=== PATIENT | female | born 1995 | race Hispanic/Latino ===

== ENCOUNTER 2017-12-02 14:28 | Emergency (ER) | payer SELFPAY ==
[2017-12-02] MEDS ORDERED: ONDANSETRON ODT 4 MG TAB ONE (15:21)
[2017-12-02] MEDS ORDERED: FAMOTIDINE/PF 20 MG/2 ML VIAL IV ONE (15:22)
[2017-12-02 15:26] LABS: APPEARANCE,URINE Clear (CLEAR); BILIRUBIN,URINE Negative (NEGATIVE); COLOR,URINE Yellow (YELLOW); GLUCOSE, URINE (UA) Negative (NEGATIVE); HCG,QUAL RESULT NEGATIVE (NEGATIVE); KETONES,URINE Negative (NEGATIVE); LEUKOCYTE ESTERASE ,URINE Negative (NEGATIVE); NITRATE,URINE Negative (NEGATIVE); OCCULT BLOOD,URINE Negative (NEGATIVE); PROTEIN,URINE Negative (NEGATIVE); UROBILINOGEN,URINE 0.2 mg/dL (0.2-1.0)
[2017-12-02 15:27] LABS: BASOPHILS % (AUTO) 0.9 % (0.0-5.0); EOSINOPHILS % (AUTO) 1.7 % (0.0-8.0); HEMATOCRIT 37.9 % (36-48); LYMPHOCYTES % (AUTO) 24.7 % (21.0-51.0); MEAN CORPUSCULAR HEMOGLOBIN 29.8 pg (27.0-33.0); MEAN CORPUSCULAR VOLUME 87.6 fL (79-99); MONOCYTES % (AUTO) 6.5 % (3.0-13.0); NEUTROPHILS % (AUTO) 66.2 % (40.0-77.0); PLATELET COUNT (AUTO) 198 K/uL (130-400); RED BLOOD CELL COUNT(AUTO) 4.33 MIL/uL (4.00-5.50); RED CELL DISTRIBUTION WIDTH 14.4 % (11.0-15.5); WHITE BLOOD COUNT (AUTO) 7.2 K/uL (4.8-10.8)
[2017-12-02 15:34] LABS: AMPHET/METH SCREEN,URINE NEGATIVE (NEGATIVE); BARBITURATE SCREEN, URINE NEGATIVE (NEGATIVE); BENZODIAZEPINES SCREEN,URINE NEGATIVE (NEGATIVE); CANNABINOID SCREEN,URINE POSITIVE (NEGATIVE); COCAINE SCREEN,URINE NEGATIVE (NEGATIVE); OPIATE SCREEN,URINE NEGATIVE (NEGATIVE); PHENCYCLIDINE SCREEN,URINE NEGATIVE (NEGATIVE)
[2017-12-02 15:38] LABS: CREATININE 0.7 mg/dL (0.5-1.5); POTASSIUM 3.9 mmol/L (3.5-5.1)
[2017-12-02 15:42] LABS: ALBUMIN 4.1 g/dL (3.5-5.0); BILIRUBIN,DIRECT 0.1 mg/dL (0.0-0.3); BILIRUBIN,TOTAL 0.4 mg/dL (0.2-1.0)
[2017-12-02] MEDS ORDERED: SODIUM CHLORIDE 0.9% 1000ML 1,000 ML IV ONE (15:58)
== END 2017-12-02 18:51 | disposition home or self-care (01) ==
LOC: EDH 14:28
DX: R10.10 Upper abdominal pain, unspecified (principal); R74.8 Abnormal levels of other serum enzymes; R11.0 Nausea; Z98.890 Other specified postprocedural states
CPT/HCPCS: 36415; 76705; 80048; 80076; 80305; 81003; 81025; 83690; 85025; 86677; 96361; 96365; 99285; J3490; J7030

== ENCOUNTER 2018-02-04 23:19 | Emergency (ER) | payer OTHER ==
[2018-02-04 23:58] LABS: APPEARANCE,URINE Clear (CLEAR); BILIRUBIN,URINE Negative (NEGATIVE); COLOR,URINE Yellow (YELLOW); GLUCOSE, URINE (UA) Negative (NEGATIVE); KETONES,URINE Negative (NEGATIVE); LEUKOCYTE ESTERASE ,URINE Negative (NEGATIVE); NITRATE,URINE Negative (NEGATIVE); OCCULT BLOOD,URINE Negative (NEGATIVE); PROTEIN,URINE Negative (NEGATIVE)
[2018-02-05 00:01] LABS: HCG,QUAL RESULT NEGATIVE (NEGATIVE)
[2018-02-05 00:11] LABS: RAPID GROUP A STREP NEGATIVE (NEGATIVE)
== END 2018-02-05 01:18 | disposition home or self-care (01) ==
LOC: EDH 23:19
DX: J02.9 Acute pharyngitis, unspecified (principal); R50.81 Fever presenting with conditions classified elsewhere; J45.909 Unspecified asthma, uncomplicated
CPT/HCPCS: 71045; 81003; 81025; 87804; 87880

== ENCOUNTER 2018-09-25 21:44 | Emergency (ER) | payer OTHER | END 2018-09-26 00:16 | disposition home or self-care (01) | LOC: EDH 21:44 | DX: J06.9 Acute upper respiratory infection, unspecified (principal); F41.9 Anxiety disorder, unspecified; J45.909 Unspecified asthma, uncomplicated | CPT/HCPCS: 87804 ==

== ENCOUNTER 2019-06-26 19:58 | Emergency (ER) | payer OTHER ==
[2019-06-26 20:19] LABS: APPEARANCE,URINE Clear (CLEAR); BILIRUBIN,URINE Negative (NEGATIVE); COLOR,URINE Yellow (YELLOW); GLUCOSE, URINE (UA) Negative (NEGATIVE); KETONES,URINE Negative (NEGATIVE); LEUKOCYTE ESTERASE ,URINE Small (NEGATIVE); NITRATE,URINE Negative (NEGATIVE); OCCULT BLOOD,URINE Negative (NEGATIVE); PH,URINE 6.5 (5.0-8.0); PROTEIN,URINE Negative (NEGATIVE)
[2019-06-26 20:32] LABS: BACTERIA,URINE Few /HPF (None Seen); MUCUS,URINE Few LPF (None Seen)
== END 2019-06-26 20:45 | disposition home or self-care (01) ==
LOC: EDH 19:58
DX: S30.1XXA Contusion of abdominal wall, initial encounter (principal); J45.909 Unspecified asthma, uncomplicated; F41.9 Anxiety disorder, unspecified; F32.9 Major depressive disorder, single episode, unspecified; X58.XXXA Exposure to other specified factors, initial encounter; Y93.89 Activity, other specified; Y92.89 Other specified places as the place of occurrence of the external cause; Y99.8 Other external cause status
CPT/HCPCS: 81001

== ENCOUNTER 2024-01-29 20:22 | Emergency (ER) | payer OTHER ==
[~2024-01-29] VITALS: Ht 152.4 cm; Wt 59.0 kg
[2024-01-29 20:27] VITALS: BP 124/62; PULSE 92; RESP 18
[2024-01-29 20:57] LABS: RAPID GROUP A STREP negative (NEGATIVE)
[2024-01-29 21:01] LABS: SARS-CoV-2, RNA, NAAT NEGATIVE SARS CoV-2 (NEGATIVE)
[2024-01-29 21:04] LABS: INFLUENZA TYPE A NEGATIVE FOR TYPE A (NEG)
[2024-01-29 21:05] LABS: INFLUENZA TYPE B NEGATIVE FOR TYPE B (NEG)
[2024-01-29 21:11] LABS: BASOPHILS # (AUTO) 0.05 K/uL (0.00-0.20); BASOPHILS % (AUTO) 0.5 % (0.0-5.0); EOSINOPHILS # (AUTO) 0.31 K/uL (0.00-0.70); EOSINOPHILS % (AUTO) 3.1 % (0.0-8.0); HEMATOCRIT 38.3 % (36-48); IMMATURE GRANULOCYTE ABSOLUTE 0.09 K/uL (0-1); MEAN CORPUSCULAR HEMOGLOBIN 30.1 pg (27.0-33.0); MEAN CORPUSCULAR HGB CONC 33.7 g/dL (32.0-36.0); MEAN CORPUSCULAR VOLUME 89.5 fL (79-99); MONOCYTES # (AUTO) 0.6 K/uL (0.1-1.0); NEUTROPHILS % (AUTO) 59.5 % (40.0-77.0); PLATELET COUNT (AUTO) 278 K/uL (130-400); RED BLOOD CELL COUNT(AUTO) 4.28 MIL/uL (4.00-5.50); RED CELL DISTRIBUTION WIDTH 13.2 % (11.0-15.5); WHITE BLOOD COUNT (AUTO) 10.1 K/uL (4.8-10.8)
[2024-01-29 21:21] LABS: CREATININE 0.8 mg/dL (0.5-1.0); POTASSIUM 3.5 mmol/L (3.5-5.1)
[2024-01-29] MEDS ORDERED: AMOX1TAB16 PO (22:57)
[2024-01-29] MEDS ORDERED: FLUT16H NASAL (22:57)
[2024-01-29] MEDS: GUAIFENESIN/DEXTROMETHORPHAN 1 EACH TAB.SR.12H PO ONE (23:33)
== END 2024-01-29 23:44 | disposition home or self-care (01) ==
LOC: EDH 20:22
DX: J32.9 Chronic sinusitis, unspecified (principal); J45.909 Unspecified asthma, uncomplicated; K21.9 Gastro-esophageal reflux disease without esophagitis
CPT/HCPCS: 36415; 71045; 80048; 85025; 87635; 87804; 87880

== ENCOUNTER 2024-03-01 20:07 | Emergency (ER) | payer OTHER ==
[~2024-03-01] VITALS: Ht 144.8 cm; Wt 58.5 kg
[~2024-03-01 20:07] MED LIST: AMOX1TAB16 PO; FLUT16H NASAL
[2024-03-01] MEDS ORDERED: KETO10TA2 PO (22:10)
[2024-03-01] MEDS: KETOROLAC 30MG VIAL (30MG/ML) IM ONE (22:15)
[2024-03-01 22:24] VITALS: BP 111/75; PULSE 80; RESP 18; O2SAT 98
== END 2024-03-01 22:25 | disposition home or self-care (01) ==
LOC: EDH 20:07
DX: S16.1XXA Strain of muscle, fascia and tendon at neck level, initial encounter (principal); S06.0X0A Concussion without loss of consciousness, initial encounter; J45.909 Unspecified asthma, uncomplicated; Z79.2 Long term (current) use of antibiotics; Z79.899 Other long term (current) drug therapy; V49.49XA Driver injured in collision with other motor vehicles in traffic accident, initial encounter; Y93.I9 Activity, other involving external motion; Y92.488 Other paved roadways as the place of occurrence of the external cause; Y99.8 Other external cause status
CPT/HCPCS: 99285; 70450; 84703; 36415; 72125; 96372; J1885

== ENCOUNTER 2024-11-01 11:54 | Emergency (ER) | payer SELFPAY ==
[~2024-11-01] VITALS: Ht 144.8 cm; Wt 58.1 kg
[~2024-11-01 11:54] MED LIST changes: +KETO10TA2 PO
--- NOTE | 2024-11-01 13:05 | ERN ---
ED Note History of Present Illness Stated Complaint: FEL, RIGHT WRIST PAIN, SWOLLEN Chief Complaint: Hand Problem/Injury Time Seen by MD: 11:55 Time Seen by Midlevel: 11:55 Dictation: 29-year-old female presents to the ED for evaluation of right wrist and arm pain since yesterday. Patient reports she was playing with the kids when she tripped and fell and landed on her right arm. Patient reports she has had pains and swelling since. Reports full range motion of fingers and sensation. Denies hitting her head or loss of consciousness. No blood thinners. Allergies: Coded Allergies: No Known Drug Allergies (Unverified Allergy, Unknown, 03/01/24) Home Meds Active Scripts Ketorolac Tromethamine (Ketorolac Tromethamine) 10 Mg Tablet, 10 MG PO BID for 5 Days, #10 TAB Prov:JULIO MCLAUGHLIN 03/01/24 Amoxicillin/Potassium Clav (Amox Tr-K Clv 875-125 mg Tab) 875 Mg-125 Mg Tablet, 1 EACH PO BID for 7 Days, #14 TAB Prov:RYLIE STINSON MD 01/29/24 Fluticasone Propionate (Flonase Nasal [place]) 50 Mcg/Actuation [place], 50 MCG NASAL BID for 7 Days, #60 SPRAY Prov:RYLIE STINSON MD 01/29/24 Past Medical History Past Medical History: Asthma Surgical History: None RN Note Reviewed/Agreed w/PFSH: Yes Review of System Dictation CONSTITUTIONAL: Negative except for HPI HEAD/FACE: Negative except for HPI EENT: Negative except for HPI RESPIRATORY: Negative except for HPI GASTROINTESTINAL/ABDOMINAL: Negative except for HPI GENITOURINARY: Negative except for HPI MUSCULOSKELETAL: Negative except for HPI INTEGUMENTARY: Negative except for HPI NEUROLOGICAL/PSYCH: Negative except for HPI HEMATOLOGIC/LYMPHATIC: Negative except for HPI All Systems Negative, Except as noted above. 13 point review of systems assessed and all negative except for above. Review of Systems: was completed Initial Vital Sign VS Vital Signs Date Time Temp Pulse Resp B/P (MAP) Pulse Ox O2 Delivery O2 Flow Rate FiO2 11/01/24 12:13 97.9 76 16 114/84 96 Room Air Physical Exam Dictation Vital Signs reviewed General Appearance: Alert, oriented x 3, no acute distress, well developed, nourished. Head and Face: non-traumatic. Eyes: PERRL, pink conjunctivas, eyelid no trauma, anterior chamber with arcus senilis. Ears: Pinnas intact and no signs of trauma or erythema ear canals clear and no discharge TM no erythema Nose: No discharge, no bleeding. Oropharynx: Mouth normal, tongue pink, pharynx clear,no erythema, tonsils no exudates, no abscesses noted, mucous membrane moist Neck: Supple, non-tender, no thyromegaly, no masses, no JVD, no bruits Breast:Deferred Chest:No tenderness, no crepitus, no paradoxical movement, no retractions Lungs:Clear, well-ventilated, symmetric, no rales, no wheezing, no rhonchi, no stridor, good breath sounds bilaterally Heart: Regular rate, regular rhythm, no murmur, no gallops Vascular: no peripheral edema, Abdomen: Soft, positive bowel sounds, nondistended, no guarding, nontender, no rebound, no masses no hepatomegaly, no splenomegaly, no Muniz's sign, no hernias. Rectal: Deferred Genital: Deferred Neurological: Normal speech, motor function intact, sensory function intact Musculoskeletal: Tenderness to palpation right wrist and forearm. Full range motion of all digits. Normal capillary refill less than 2 seconds. Radial pulse intact. Extremities: nontender, full range of motion Skin: Color pink, dry, no turgor, no rash, no lacerations, no abrasions, no contusions. Lymphatic: Deferred Results (Laboratory/Radiology) Labs Reviewed?: Yes X-RAY Comment: REASON: fall ORDERING PHYSICIAN: MICHEL ORTIZ PROCEDURE: WRST 3V RT - WRIST COMP 3+VWS RT Exam Type: WRIST COMP 3+VWS RT Clinical Information: fall Comparison: None Findings: The bone examination is unremarkable. No fractures or dislocations are seen. No radiopaque foreign bodies are noted. Soft tissues are preserved. IMPRESSION: Normal examination. REASON: fall ORDERING PHYSICIAN: MICHEL ORTIZ PROCEDURE: HAND 3V RT - HAND 3+VWS RT Exam Type: HAND 3+VWS RT Clinical Information: fall Comparison: None Findings: The bone examination is unremarkable. No fractures or dislocations are seen. No radiopaque foreign bodies are noted. Soft tissues are preserved. IMPRESSION: Normal examination. REASON: fall ORDERING PHYSICIAN: MICHEL ORTIZ PROCEDURE: [id number] - ELBOW 2VWS RT Exam Type: ELBOW 2VWS RT Clinical Information: fall Comparison: None Findings: The bone examination is unremarkable. No fractures or dislocations are seen. No radiopaque foreign bodies are noted. Soft tissues are preserved. IMPRESSION: Normal examination. ED Course ED Course Orders Procedure Category Date Status Time Wrist Comp 3+Vws Rt RAD 11/01/24 Resulted 12:16 Hand 3+Vws Rt RAD 11/01/24 Resulted 12:16 Elbow 2vws Rt RAD 11/01/24 Resulted 12:16 Ketorolac PHA 11/01/24 Complete Tromethamine 15mg/Ml 12:30 Current Medications Medications (Trade) Dose Ordered Sig/Nicolasa Route PRN Reason Start Time Stop Time Status Last Admin Dose Admin Ketorolac Tromethamine (toRADol) 15 mg ONCE ONCE IM 11/01/24 12:30 11/01/24 12:31 DC Vital Signs Date Time Temp Pulse Resp B/P (MAP) Pulse Ox O2 Delivery O2 Flow Rate FiO2 11/01/24 12:13 97.9 76 16 114/84 96 Room Air Medical Decision Making MDM MDM: Differential diagnosis: Radial fracture, elbow fracture, dislocation, sprain, f ollow up, contusion There are no social concerns with this patient. Prescription drug management Prescriptions will include: Medical management and examination interpretation discussions were had by me with other qualified healthcare professionals as indicated for the patient's care. Patient came in after a fall that occurred yesterday. Has full range of motion elbow and shoulder and fingers Radial pulses intact. Normal capillary refill less than 2 seconds. No obvious deformities. Patient was have some mild tenderness to the radial aspect of right wrist. X-rays were unremarkable with no acute findings of fracture dislocation. Patient will be placed in a premade volar splint by R and recommended follow up with PCP and orthopedic. DX & DISP Disposition: Discharge Departure Impression: Primary Impression: Fall Additional Impression: Right wrist pain Condition: Stable Scripts Ibuprofen (Ibuprofen) 600 Mg Tablet 1 TAB PO TID for pain for 10 Days, #30 TAB 0 Refills with food Prov: MICHEL ORTIZ 11/01/24 Referrals: SELF,REFERRAL (PCP) ALEX CORONEL MD I have reviewed the case, and I agree with, Diagnosis and Plan MICHEL ORTIZ Nov 01, 2024 13:05
--- NOTE | 2024-11-01 13:20 | HMCIMG ---
Exam Type: WRIST COMP 3+VWS RT Clinical Information: fall Comparison: None Findings: The bone examination is unremarkable. No fractures or dislocations are seen. No radiopaque foreign bodies are noted. Soft tissues are preserved. IMPRESSION: Normal examination.
--- NOTE | 2024-11-01 13:22 | HMCIMG ---
Exam Type: ELBOW 2VWS RT Clinical Information: fall Comparison: None Findings: The bone examination is unremarkable. No fractures or dislocations are seen. No radiopaque foreign bodies are noted. Soft tissues are preserved. IMPRESSION: Normal examination.
--- NOTE | 2024-11-01 13:22 | HMCIMG ---
Exam Type: HAND 3+VWS RT Clinical Information: fall Comparison: None Findings: The bone examination is unremarkable. No fractures or dislocations are seen. No radiopaque foreign bodies are noted. Soft tissues are preserved. IMPRESSION: Normal examination.
[2024-11-01] MEDS ORDERED: IBUP-2070 PO (13:33)
[2024-11-01] MEDS: ketOROlac 15MG/ML VIAL (15MG/ML) IM ONE (13:43)
[2024-11-01 13:47] VITALS: BP 115/80; PULSE 75; RESP 16; TEMP 98.1; O2SAT 98
== END 2024-11-01 13:54 | disposition home or self-care (01) ==
LOC: EDH 11:54
DX: M25.531 Pain in right wrist (principal); J45.909 Unspecified asthma, uncomplicated; Z79.899 Other long term (current) drug therapy; W01.0XXA Fall on same level from slipping, tripping and stumbling without subsequent striking against object, initial encounter; Y93.89 Activity, other specified; Y92.89 Other specified places as the place of occurrence of the external cause; Y99.8 Other external cause status
CPT/HCPCS: 99284; 73070; 73130; 73110; 96372; J1885

== ENCOUNTER 2025-02-20 13:26 | Emergency (ER) | payer SELFPAY ==
[~2025-02-20] VITALS: Ht 149.9 cm; Wt 57.2 kg
[~2025-02-20 13:26] MED LIST changes: +IBUP-2070 PO
[2025-02-20 14:13] LABS: BASOPHILS # (AUTO) 0.08 K/uL (0.00-0.20); EOSINOPHILS # (AUTO) 0.29 K/uL (0.00-0.70); EOSINOPHILS % (AUTO) 3.5 % (0.0-8.0); HEMATOCRIT 43.8 % (36-48); IMMATURE GRANULOCYTE ABSOLUTE 0.05 K/uL (0-1); LYMPHOCYTES # (AUTO) 2.2 K/uL (1.0-4.8); LYMPHOCYTES % (AUTO) 26.5 % (21.0-51.0); MEAN CORPUSCULAR HEMOGLOBIN 30.2 pg (27.0-33.0); MEAN CORPUSCULAR HGB CONC 33.6 g/dL (32.0-36.0); MEAN CORPUSCULAR VOLUME 90.1 fL (79-99); MONOCYTES # (AUTO) 0.5 K/uL (0.1-1.0); MONOCYTES % (AUTO) 5.9 % (3.0-13.0); NEUTROPHILS # (AUTO) 5.1 K/uL (1.8-7.7); NEUTROPHILS % (AUTO) 62.5 % (40.0-77.0); PLATELET COUNT (AUTO) 325 K/uL (130-400); RED BLOOD CELL COUNT(AUTO) 4.86 MIL/uL (4.00-5.50); RED CELL DISTRIBUTION WIDTH 12.7 % (11.0-15.5); WHITE BLOOD COUNT (AUTO) 8.2 K/uL (4.8-10.8)
[2025-02-20 14:28] LABS: CREATININE 0.8 mg/dL (0.5-1.0)
--- NOTE | 2025-02-20 15:35 | HMCIMG ---
CT HEAD/BRAIN W/O CONTRAST HISTORY: No additional history given. COMPARISON: None TECHNIQUE: Multiple sequential axial images of the head were obtained from the base of the skull through vertex. Patient was not given contrast through intravenous route. FINDINGS: The ventricles and extraventricular CSF spaces are nondilated for patient's age. There is no midline shift, mass effect or herniation. No acute intracranial bleed is seen. Visualized portion of the paranasal sinuses are grossly within normal limits. IMPRESSION: 1. No acute intracranial bleed is seen. CT was performed with one or more following dose reduction techniques: automated exposure control, adjustment of the mA and kv according to patient's size, or use of a iterative reconstruction technique.
[2025-02-20] MEDS ORDERED: KETO10TA2 PO (16:43)
--- NOTE | 2025-02-20 16:44 | ERN ---
General Chief Complaint: Headache Stated Complaint: HEADACHE Time Seen by MD: 13:49 Time Seen by Midlevel: 13:49 Source: patient History of Present Illness Initial Comments Patient is a 29-year-old female with no significant past medical history presenting to the emergency department for evaluation of a persistent headache that has been ongoing for one month. The patient has not seen a primary care doctor for this issue over the last month. She has been taking Tylenol and Motrin as needed for her headache with little to no relief. Yesterday her symptoms were the worst. No other symptoms reported at this time. Allergies: Coded Allergies: No Known Drug Allergies (Unverified Allergy, Unknown, 03/01/24) Home Meds Active Scripts Ibuprofen (Ibuprofen) 600 Mg Tablet, 1 TAB PO TID for pain for 10 Days, #30 TAB 0 Refills with food Prov:MICHEL ORTIZ 11/01/24 Ketorolac Tromethamine (Ketorolac Tromethamine) 10 Mg Tablet, 10 MG PO BID for 5 Days, #10 TAB Prov:JULIO MCLAUGHLIN 03/01/24 Amoxicillin/Potassium Clav (Amox Tr-K Clv 875-125 mg Tab) 875 Mg-125 Mg Tablet, 1 EACH PO BID for 7 Days, #14 TAB Prov:RYLIE STINSON MD 01/29/24 Fluticasone Propionate (Flonase Nasal [place]) 50 Mcg/Actuation [place], 50 MCG NASAL BID for 7 Days, #60 SPRAY Prov:RYLIE STINSON MD 01/29/24 Past Medical History Past Medical History: No Pertinent History Past Surgical History: None ROS Dictation CONSTITUTIONAL: Negative except for HPI HEAD/FACE: Negative except for HPI EENT: Negative except for HPI RESPIRATORY: Negative except for HPI GASTROINTESTINAL/ABDOMINAL: Negative except for HPI GENITOURINARY: Negative except for HPI MUSCULOSKELETAL: Negative except for HPI INTEGUMENTARY: Negative except for HPI NEUROLOGICAL/PSYCH: Negative except for HPI HEMATOLOGIC/LYMPHATIC: Negative except for HPI All Systems Negative, Except as noted above. 13 point review of systems assessed and all negative except for above. Physical Exam Physical Exam Dictation Vital Signs reviewed General Appearance: Alert, oriented x 3, no acute distress, well developed, nourished. Head and Face: non-traumatic. Eyes: PERRL, pink conjunctivas, eyelid no trauma, anterior chamber with arcus senilis. Ears: Pinnas intact and no signs of trauma or erythema ear canals clear and no discharge TM no erythema Nose: No discharge, no bleeding. Oropharynx: Mouth normal, tongue pink, pharynx clear,no erythema, tonsils no exudates, no abscesses noted, mucous membrane moist Neck: Supple, non-tender, no thyromegaly, no masses, no JVD, no bruits Breast:Deferred Chest:No tenderness, no crepitus, no paradoxical movement, no retractions Lungs:Clear, well-ventilated, symmetric, no rales, no wheezing, no rhonchi, no stridor, good breath sounds bilaterally Heart: Regular rate, regular rhythm, no murmur, no gallops Vascular: no peripheral edema, Abdomen: Soft, positive bowel sounds, nondistended, no guarding, nontender, no rebound, no masses no hepatomegaly, no splenomegaly, no Muniz's sign, no hernias. Rectal: Deferred Genital: Deferred Neurological: Normal speech, motor function intact, sensory function intact Musculoskeletal: Neck nontender, full range of motion, back nontender, full range of motion, Extremities: nontender, full range of motion Skin: Color pink, dry, no turgor, no rash, no lacerations, no abrasions, no contusions. Lymphatic: Deferred Results Laboratory and Microbiology Lab and Micro Result Laboratory Tests Test 02/20/25 14:08 White Blood Count 8.2 K/uL (4.8-10.8) Red Blood Count 4.86 MIL/uL (4.00-5.50) Hemoglobin 14.7 g/dL (12.0-16.0) Hematocrit 43.8 % (36-48) Mean Corpuscular Volume 90.1 fL (79-99) Mean Corpuscular Hemoglobin 30.2 pg (27.0-33.0) Mean Corpuscular Hemoglobin Concent 33.6 g/dL (32.0-36.0) Red Cell Distribution Width 12.7 % (11.0-15.5) Platelet Count 325 K/uL (130-400) Mean Platelet Volume 10.1 fL (7.5-10.5) Immature Granulocyte % (Auto) 0.6 % (0-1) Neutrophils (%) (Auto) 62.5 % (40.0-77.0) Lymphocytes (%) (Auto) 26.5 % (21.0-51.0) Monocytes (%) (Auto) 5.9 % (3.0-13.0) Eosinophils (%) (Auto) 3.5 % (0.0-8.0) Basophils (%) (Auto) 1.0 % (0.0-5.0) Neutrophils # (Auto) 5.1 K/uL (1.8-7.7) Lymphocytes # (Auto) 2.2 K/uL (1.0-4.8) Monocytes # (Auto) 0.5 K/uL (0.1-1.0) Eosinophils # (Auto) 0.29 K/uL (0.00-0.70) Basophils # (Auto) 0.08 K/uL (0.00-0.20) Absolute Immature Granulocyte (auto 0.05 K/uL (0-1) Nucleated Red Blood Cells 0.0 % (0.0-0.19) Sodium Level 139 mmol/L (136-145) Potassium Level 4.0 mmol/L (3.5-5.1) Chloride Level 104 mmol/L (101-111) Carbon Dioxide Level 27 mmol/L (21-32) Blood Urea Nitrogen 10 mg/dL (7-18) Creatinine 0.8 mg/dL (0.5-1.0) Glomerular Filtration Rate Calc 102 mL/min (>90) Random Glucose 89 mg/dL (70-105) Total Calcium 9.3 mg/dL (8.5-10.1) Serum Test, Qualitative NEGATIVE (NEGATIVE) Labs Reviewed?: Yes MDM MDM: Patient is a 29-year-old female with no significant past medical history presenting to the emergency department for evaluation of a persistent headache that has been ongoing for one month. The patient has not seen a primary care doctor for this issue over the last month. She has been taking Tylenol and Motrin as needed for her headache with little to no relief. Yesterday her sympt oms were the worst. No other symptoms reported at this time. On physical examination the patient is in no acute distress. Neurological examination is unremarkable. Vital signs are stable. CBC and chemistries are unremarkable. Patient was given Benadryl and Toradol in the emergency department and will be discharged. Patient will need to follow up outpatient with a neurologist for further observation and management. She has no red flag symptoms at this time. Her neurological examination is unremarkable. Her CT scan is negative for any acute intracranial abnormality. Differential diagnosis: Migraine headache, dehydration, electrolyte abnormality There are no social concerns with this patient. Prescription drug management Prescriptions will include: Toradol Medical management and examination interpretation discussions were had by me with other qualified healthcare professionals as indicated for the patient's care. ED Course Orders Procedure Category Date Status Time Cbc With Differential LAB 02/20/25 Complete 13:49 Basic Metabolic Panel LAB 02/20/25 Complete 13:49 Ct Head/Brain W/O CT 02/20/25 Resulted Contrast 13:49 Testing, LAB 02/20/25 Complete Serum Hcg 13:49 Diphenhydramine Hcl PHA 02/20/25 Logged (Benadryl Inj) 17:00 Ketorolac PHA 02/20/25 Logged Tromethamine 30mg/Ml 17:00 Current Medications Medications (Trade) Dose Ordered Sig/Nicolasa Route PRN Reason Start Time Stop Time Status Last Admin Dose Admin Diphenhydramine HCl (BENAdryl INJ) 50 mg ONCE ONCE IM 02/20/25 17:00 02/20/25 17:01 UNV Ketorolac Tromethamine (toRADol) 30 mg ONCE ONCE IM 02/20/25 17:00 02/20/25 17:01 UNV Vital Signs Date Time Temp Pulse Resp B/P (MAP) Pulse Ox O2 Delivery O2 Flow Rate FiO2 02/20/25 14:30 97.2 67 18 109/73 98 Room Air* 0 21 02/20/25 13:30 97.3 67 16 109/73 97 0 DX & DISP Disposition: Discharge Departure Impression: Primary Impression: Headache, unspecified Condition: Stable Scripts Ketorolac Tromethamine (Ketorolac Tromethamine) 10 Mg Tablet 1 TAB PO TID for pain for 5 Days, #15 TAB 0 Refills Prov: JULIO MCLAUGHLIN 02/20/25 Additional Instructions: Your blood work today is unremarkable. Your CT scan is normal. You need to follow up with either your primary care doctor or neurologist for outpatient management. You may need to be worked up for migraines, normal pressure hydrocephalus, or multiple sclerosis Referrals: SELF,REFERRAL (PCP) Time of Disposition: 16:43 I have reviewed the case, and I agree with, Diagnosis and Plan I performed the substantive portion of the visit. I have reviewed and personally made and approve the management plan that is documented in the note by myself or the SILVIO. I acknowledge for responsibility for the patient's management plan. JULIO MCLAUGHLIN February 20, 2025 16:44
[2025-02-20] MEDS: DiphenhydrAMINE HCL 50 MG/ML VIAL IM ONE (16:48)
[2025-02-20] MEDS: ketOROlac 30MG VIAL (30MG/ML) IM ONE (16:49)
[2025-02-20 16:53] VITALS: BP 115/68; PULSE 62; RESP 18; TEMP 97.2; O2SAT 97
== END 2025-02-20 16:56 | disposition home or self-care (01) ==
LOC: EDH 13:26
DX: R51.9 Headache, unspecified (principal); Z79.1 Long term (current) use of non-steroidal anti-inflammatories (NSAID); Z79.899 Other long term (current) drug therapy
CPT/HCPCS: 99285; 70450; 80048; 84703; 85025; 36415; 96372 ×2; J1885; J1200

== ENCOUNTER 2025-04-08 16:14 | Emergency (ER) | payer SELFPAY ==
[~2025-04-08] VITALS: Ht 152.4 cm; Wt 65.8 kg
--- NOTE | 2025-04-08 16:52 | EKG ---
[facility] Test Date: 2025-04-08 Test Time: 16:47:45 Pat Name: CELSO YEH Department: ED Room: Gender: F Note Taker: [id number] : 1995 Requested By: CARI RASMUSSEN Order Number: [id number] Reading MD: Jose David Ann Measurements Intervals [place] Rate: 78 P: 49 [place]: 154 QRS: 17 QRSD: 69 T: 4 QT: 373 QTc: 427 Interpretive Statements Sinus rhythm No previous ECG available for comparison Electronically Signed On 04-08-2025 22:20:35 CDT by Jose David Ann Please click the below link to view image of tracing.
[2025-04-08 17:01] LABS: IMMATURE GRANULOCYTE ABSOLUTE 0.04 K/uL (0-1); NUCLEATED RED BLOOD CELLS 0.0 % (0.0-0.19); PLATELET COUNT (AUTO) 312 K/uL (130-400); RED BLOOD CELL COUNT(AUTO) 4.17 MIL/uL (4.00-5.50); RED CELL DISTRIBUTION WIDTH 13.3 % (11.0-15.5); WHITE BLOOD COUNT (AUTO) 9.2 K/uL (4.8-10.8)
[2025-04-08 17:09] LABS: RAPID GROUP A STREP negative (NEGATIVE)
[2025-04-08 17:12] LABS: CREATININE 0.6 mg/dL (0.5-1.0); GLOMERULAR FILTR. RATE CALC 123.0 mL/min (>90); GLUCOSE,RANDOM 93.0 mg/dL (70-105); SODIUM SERUM 140.0 mmol/L (136-145); UREA NITROGEN, BLOOD 10.0 mg/dL (7-18)
[2025-04-08 17:12] LABS: SARS-CoV-2, RNA, NAAT NEGATIVE SARS CoV-2 (NEGATIVE)
[2025-04-08 17:19] LABS: INFLUENZA TYPE A Negative For Type A (NEGATIVE); INFLUENZA TYPE B Negative For Type B (NEGATIVE)
[2025-04-08 17:49] LABS: APPEARANCE,URINE CLEAR (CLEAR); GLUCOSE, URINE (UA) NEGATIVE (NEGATIVE); LEUKOCYTE ESTERASE ,URINE NEGATIVE Leu/uL (NEGATIVE); NITRATE,URINE NEGATIVE (NEGATIVE); OCCULT BLOOD,URINE NEGATIVE (NEGATIVE)
[2025-04-08 17:52] LABS: ADD UA MICROSCOPIC NO
[2025-04-08 17:56] LABS: AMPHET/METH SCREEN,URINE NEGATIVE (NEGATIVE); BARBITURATE SCREEN, URINE NEGATIVE (NEGATIVE); CANNABINOID SCREEN,URINE NEGATIVE (NEGATIVE); COCAINE SCREEN,URINE NEGATIVE (NEGATIVE)
--- NOTE | 2025-04-08 18:31 | ERN ---
ED Note History of Present Illness Stated Complaint: MULTIPLE COMPLAINTS Chief Complaint: Sore Throat Time Seen by MD: 16:28 Time Seen by Midlevel: 16:30 Dictation: 30-year-old female coming in with complaints of throat pain, body aches and pains, and headache. However patient states headache has been going on and off for the last couple of months. Was previously seen here for headaches. Referred to see a specialist but has not seen her. As per person that came with the patient's patient's looks confused and felt. States she always looks lost but today she looks more loss. Denies having any fever, nausea vomiting or diarrhea. Patient answering all my LOC questions correctly. Allergies: Coded Allergies: No Known Drug Allergies (Unverified Allergy, Unknown, 03/01/24) Home Meds Active Scripts Ketorolac Tromethamine (Ketorolac Tromethamine) 10 Mg Tablet, 1 TAB PO TID for pain for 5 Days, #15 TAB 0 Refills Prov:JULIO MCLAUGHLIN 02/20/25 Ibuprofen (Ibuprofen) 600 Mg Tablet, 1 TAB PO TID for pain for 10 Days, #30 TAB 0 Refills with food Prov:MICHEL ORTIZ 11/01/24 Ketorolac Tromethamine (Ketorolac Tromethamine) 10 Mg Tablet, 10 MG PO BID for 5 Days, #10 TAB Prov:JULIO MCLAUGHLIN 03/01/24 Amoxicillin/Potassium Clav (Amox Tr-K Clv 875-125 mg Tab) 875 Mg-125 Mg Tablet, 1 EACH PO BID for 7 Days, #14 TAB Prov:RYLIE STINSON MD 01/29/24 Fluticasone Propionate (Flonase Nasal [place]) 50 Mcg/Actuation [place], 50 MCG NASAL BID for 7 Days, #60 SPRAY Prov:RYLIE STINSON MD 01/29/24 Past Medical History Past Medical History: No Pertinent History Surgical History: None Review of System Dictation Constitutional: Complaining of chills, generalized malaise Eyes: Negative for injury, pain,redness, and discharge ENT: Negative for injury,pain or swelling Cardiovascular: Negative for chest pain, palpitations, and edema Respiratory: Negative for shortness of breath, cough, and wheezing, Abdomen/GI: Negative for abdominal pain, nausea, vomiting, diarrhea, and constipation Back: Negative for injury and pain : Negative for injury, bleeding and discharge MS/Extremity: Negative for injury and deformity Skin: Negative for rash, and discoloration Neuro: Negative for headache, weakness, numbness, tingling, and seizure Psych: Negative for suicide ideation, homicidal ideation, and hallucinations Review of Systems: was completed Initial Vital Sign VS Vital Signs Date Time Temp Pulse Resp B/P (MAP) Pulse Ox O2 Delivery O2 Flow Rate FiO2 04/08/25 16:35 98.1 80 18 107/70 98 Physical Exam Dictation General: awake, alert, NAD Head/Face: Normocephalic, atraumatic Eyes: PERRL, EOMI, vision at baseline ENT: oral cavity clear, TMs clear, no signs of infection Neck: Trachea midline, supple, no nuchal rigidity Cardiovascular: RRR, normal S1/S2, No MRGs, no JVD Respiratory: CTAB, no respiratory distress, No rales or wheezes Abdomen: Soft, non-tender, non-distended, normal bowel sounds, no guarding or rebound. Skin: Warm, dry, normal turgor, no rash MS/Extremity: Pulses equal, no cyanosis, neurovascular intact, FROM Neuro: COAx4, GCS 15, strength 5/5, CN 2-12 intact, normal cerebellar exam, normal gait, Psych: Normal behavior, mood, and affect normal Results (Laboratory/Radiology) Laboratory/Radiology Laboratory Tests Test 04/08/25 16:42 04/08/25 16:54 04/08/25 17:35 White Blood Count 9.2 K/uL (4.8-10.8) Red Blood Count 4.17 MIL/uL (4.00-5.50) Hemoglobin 13.0 g/dL (12.0-16.0) Hematocrit 38.5 % (36-48) Mean Corpuscular Volume 92.3 fL (79-99) Mean Corpuscular Hemoglobin 31.2 pg (27.0-33.0) Mean Corpuscular Hemoglobin Concent 33.8 g/dL (32.0-36.0) Red Cell Distribution Width 13.3 % (11.0-15.5) Platelet Count 312 K/uL (130-400) Mean Platelet Volume 10.1 fL (7.5-10.5) Immature Granulocyte % (Auto) 0.4 % (0-1) Neutrophils (%) (Auto) 62.4 % (40.0-77.0) Lymphocytes (%) (Auto) 24.6 % (21.0-51.0) Monocytes (%) (Auto) 8.3 % (3.0-13.0) Eosinophils (%) (Auto) 3.4 % (0.0-8.0) Basophils (%) (Auto) 0.9 % (0.0-5.0) Neutrophils # (Auto) 5.8 K/uL (1.8-7.7) Lymphocytes # (Auto) 2.3 K/uL (1.0-4.8) Monocytes # (Auto) 0.8 K/uL (0.1-1.0) Eosinophils # (Auto) 0.31 K/uL (0.00-0.70) Basophils # (Auto) 0.08 K/uL (0.00-0.20) Absolute Immature Granulocyte (auto 0.04 K/uL (0-1) Nucleated Red Blood Cells 0.0 % (0.0-0.19) Sodium Level 140 mmol/L (136-145) Potassium Level 4.1 mmol/L (3.5-5.1) Chloride Level 108 mmol/L (101-111) Carbon Dioxide Level 23 mmol/L (21-32) Blood Urea Nitrogen 10 mg/dL (7-18) Creatinine 0.6 mg/dL (0.5-1.0) Glomerular Filtration Rate Calc 123 mL/min (>90) Random Glucose 93 mg/dL (70-105) Total Calcium 8.6 mg/dL (8.5-10.1) Ammonia 15 umol/L (11-32) Troponin I High Sensitivity < 4 ng/L (4-50) L Influenza Type A Antigen Negative For Type A Influenza Type B Antigen Negative For Type B SARS-CoV-2, RNA, NAAT NEGATIVE SARS CoV-2 Group A Streptococcus Rapid negative (NEGATIVE) Urine Color COLORLESS (YELLOW) Urine Appearance CLEAR (CLEAR) Urine pH 6.0 (5.0-8.0) Urine Specific [place] 1.001 (1.001-1.031) Urine Protein NEGATIVE mg/dL (NEGATIVE) Urine Glucose (UA) NEGATIVE mg/dL (NEGATIVE) Urine Ketones NEGATIVE mg/dL (NEGATIVE) Urine Occult Blood NEGATIVE (NEGATIVE) Urine Nitrate NEGATIVE (NEGATIVE) Urine Bilirubin NEGATIVE mg/dL (NEGATIVE) Urine Urobilinogen 0.2 mg/dL (0.2-1.0) Urine Leukocyte Esterase NEGATIVE [place]/uL Urine Opiates Screen NEGATIVE (NEGATIVE) Urine Barbiturates Screen NEGATIVE (NEGATIVE) Urine Phencyclidine Screen NEGATIVE (NEGATIVE) Urine Amphetamines Screen NEGATIVE (NEGATIVE) Urine Benzodiazepines Screen NEGATIVE (NEGATIVE) Urine Cocaine Screen NEGATIVE (NEGATIVE) Urine Marijuana (THC) Screen NEGATIVE (NEGATIVE) Labs Reviewed?: Yes ED Course ED Course Orders Procedure Category Date Status Time Rapid (Group A Strep) LAB 04/08/25 Complete 16:39 Covid Rna Naat LAB 04/08/25 Complete 16:39 Influenza Type A & B, LAB 04/08/25 Complete Rapid 16:39 Cbc With Differential LAB 04/08/25 Complete 16:40 Basic Metabolic Panel LAB 04/08/25 Complete 16:40 Drug Screen Urine LAB 04/08/25 Complete 16:40 Urinalysis Profile LAB 04/08/25 Complete 16:40 Ammonia LAB 04/08/25 Complete 16:40 Troponin I High LAB 04/08/25 Complete Sensitivity 16:40 12 Lead Ekg Tracing- EKG 04/08/25 Complete Technical 16:40 Vital Signs Date Time Temp Pulse Resp B/P (MAP) Pulse Ox O2 Delivery O2 Flow Rate FiO2 04/08/25 16:35 98.1 80 18 107/70 98 Medical Decision Making MDM MDM: 30-year-old female coming in with complaints of throat pain, body aches and pains, and headache. However patient states headache has been going on and off for the last couple of months. Was previously seen here for headaches. Referred to see a specialist but has not seen her. As per person that came with the patient's patient's looks confused and felt. Denies having any fever, nausea vomiting or diarrhea. Patient answering all my LOC questions correctly. There is no neck pain or neck rigidity. No meningeal signs. Neurological exam normal. All lab work is unremarkable. Swabs are negative. Discussed findings with the patient. Educated patient she needs to follow up with PCP and follow u p with the specialist if she continues with the his headaches. Differential diagnosis: All lab work is unremarkable. Swabs are negative. Rationale: Tests considered and ordered secondary to shared decision making include: Previous outside records reviewed: Old ER visits. Risk of complication and/or morbidity or mortality of patient management: None Medications-Per medication reconciliation Need for hospitalization: Patient does not meet criteria for hospitalization. Need for emergency major/minor surgery: No There are no social concerns with this patient. Prescription drug management Prescriptions will include symptomatic care Patient's prior external medical records from other ER visits were reviewed by me as indicated. Prior testing and results from previous visits were reviewed. Prior tests were taken into account with medical decision making and resource utilization, independent historian/historians were used to obtain complete medical history. I independently interpreted the test that were performed, results were reviewed by me and considered findings on radiology if ordered. Medical management and examination interpretation discussions were had by me with other qualified healthcare professionals as indicated for the patient's care. DX & DISP Disposition: Discharge Departure Impression: Primary Impression: Viral syndrome Condition: Stable Additional Instructions: Please follow up with your PCP in 1-2 days. Return to the hospital for worsening symptoms. Referrals: SELF,REFERRAL (PCP) BAYRON TOPETE MD Time of Disposition: 18:29 I have reviewed the case, and I agree with, Diagnosis and Plan CARI RASMUSSEN NP Apr 08, 2025 18:31
[2025-04-08 19:06] VITALS: BP 110/73; PULSE 82; RESP 18; TEMP 98.1; O2SAT 98
== END 2025-04-08 19:33 | disposition home or self-care (01) ==
LOC: EDH 16:14
DX: B34.9 Viral infection, unspecified (principal); Z79.1 Long term (current) use of non-steroidal anti-inflammatories (NSAID); Z20.822 Contact with and (suspected) exposure to COVID-19
CPT/HCPCS: 36415; 80048; 80305; 81003; 82140; 84484; 85025; 87635; 87804; 87880; 93005; 99284

== ENCOUNTER 2025-09-10 08:43 | Emergency (ER) | payer SELFPAY ==
[~2025-09-10] VITALS: Ht 147.3 cm; Wt 55.8 kg
[~2025-09-10 08:43] MED LIST changes: +IBUP-1492 PO; -IBUP-2070 PO
[2025-09-10 09:08] LABS: RAPID GROUP A STREP negative (NEGATIVE)
[2025-09-10 09:17] LABS: COVID19 (SARS ANTIGEN RAPID) PRESUMPTIVE NEGATIVE (NEGATIVE)
[2025-09-10 09:18] LABS: INFLUENZA TYPE A Negative For Type A (NEGATIVE); INFLUENZA TYPE B Negative For Type B (NEGATIVE)
--- NOTE | 2025-09-10 09:51 | ERN ---
ED Note History of Present Illness Stated Complaint: COUGH Chief Complaint: Congestion Time Seen by MD: 08:44 Dictation: Patient is a 30-year-old female who presented to the ER complaining of chills, cough, weakness times 2 days. Patient denies fever. Allergies: Coded Allergies: No Known Drug Allergies (Unverified Allergy, Unknown, 03/01/24) Home Meds Active Scripts Ibuprofen (Ibuprofen) 400 Mg Tablet, 1 TAB PO TID for pain or fever for 20 Days, #60 TAB 0 Refills Prov:FLACO ORELLANA MD 09/10/25 Guaifenesin/Dextromethorphan (Robitussin Ixcnf-Nocpn-Vvjd Dm) 200 Mg-10 Mg Capsule, 1 CAP PO BID for 10 Days, #20 CAP 0 Refills Prov:FLACO ORELLANA MD 09/10/25 Amoxicillin/Potassium Clav (Amox Tr-K Clv 875-125 mg Tab) 875 Mg-125 Mg Tablet, 1 TAB PO BID for 10 Days, #20 TAB 0 Refills Prov:FLACO ORELLANA MD 09/10/25 Ketorolac Tromethamine (Ketorolac Tromethamine) 10 Mg Tablet, 1 TAB PO TID for pain for 5 Days, #15 TAB 0 Refills Prov:JULIO MCLAUGHLIN PAC 02/20/25 Ibuprofen (Ibuprofen) 600 Mg Tablet, 1 TAB PO TID for pain for 10 Days, #30 TAB 0 Refills with food Prov:MICHEL ORTIZ I PAC 11/01/24 Ketorolac Tromethamine (Ketorolac Tromethamine) 10 Mg Tablet, 10 MG PO BID for 5 Days, #10 TAB Prov:JULIO MCLAUGHLIN PAC 03/01/24 Amoxicillin/Potassium Clav (Amox Tr-K Clv 875-125 mg Tab) 875 Mg-125 Mg Tablet, 1 EACH PO BID for 7 Days, #14 TAB Prov:RYLIE STINSON MD 01/29/24 Fluticasone Propionate (Flonase Nasal [place]) 50 Mcg/Actuation [place], 50 MCG NASAL BID for 7 Days, #60 SPRAY Prov:RYLIE STINSON MD 01/29/24 Past Medical History Past Medical History: No Pertinent History Surgical History: None Review of System Dictation NEGATIVE EXCEPT PER HPI Constitutional: Weakness and chills Eyes: Negative for injury, pain,redness, and discharge ENT: Negative for injury,pain or swelling Cardiovascular: denies chest pain, palpitations, and edema Respiratory: Cough Abdomen/GI: Negative for abdominal pain, nausea, vomiting, diarrhea, and constipation Back: Negative for injury and pain : Negative for injury, bleeding and discharge MS/Extremity: Negative for injury and deformity Skin: Negative for rash, and discoloration Neuro: Negative for headache, weakness, numbness, tingling, and seizure Psych: Negative for suicide ideation, homicidal ideation, and hallucinations Initial Vital Sign VS Vital Signs Date Time Temp Pulse Resp B/P (MAP) Pulse Ox O2 Delivery O2 Flow Rate FiO2 09/10/25 08:44 98.4 83 20 103/71 97 Room Air 09/10/25 09:57 0 21 Physical Exam Dictation General: awake, alert, NAD Head/Face: Normocephalic, atraumatic Eyes: PERRL, EOMI, vision at baseline ENT: oral cavity clear, TMs clear, no signs of infection Neck: Trachea midline, supple, no nuchal rigidity Cardiovascular: RRR, normal S1/S2, No MRGs, no JVD Respiratory: CTAB, no respiratory distress, No rales or wheezes Abdomen: Soft , no tender Skin: Warm, dry, normal turgor, no rash MS/Extremity: Pulses equal, no cyanosis, neurovascular intact, FROM Neuro: COAx4, GCS 15, strength 5/5, CN 2-12 intact, normal cerebellar exam, normal gait, Psych: Normal behavior, mood, and affect normal Results (Laboratory/Radiology) Laboratory/Radiology Laboratory Tests Test 09/10/25 08:47 09/10/25 09:57 Influenza Type A Antigen Negative For Type A Influenza Type B Antigen Negative For Type B SARS-CoV-2 Antigen (Rapid) PRESUMPTIVE NEGATIVE Group A Streptococcus Rapid negative (NEGATIVE) White Blood Count 13.8 K/uL (4.8-10.8) H Red Blood Count 4.12 MIL/uL (4.00-5.50) Hemoglobin 12.5 g/dL (12.0-16.0) Hematocrit 37.7 % (36-48) Mean Corpuscular Volume 91.5 fL (79-99) Mean Corpuscular Hemoglobin 30.3 pg (27.0-33.0) Mean Corpuscular Hemoglobin Concent 33.2 g/dL (32.0-36.0) Red Cell Distribution Width 12.9 % (11.0-15.5) Platelet Count 287 K/uL (130-400) Mean Platelet Volume 9.5 fL (7.5-10.5) Immature Granulocyte % (Auto) 0.5 % (0-1) Neutrophils (%) (Auto) 78.5 % (40.0-77.0) H Lymphocytes (%) (Auto) 12.7 % (21.0-51.0) L Monocytes (%) (Auto) 6.2 % (3.0-13.0) Eosinophils (%) (Auto) 1.6 % (0.0-8.0) Basophils (%) (Auto) 0.5 % (0.0-5.0) Neutrophils # (Auto) 10.8 K/uL (1.8-7.7) H Lymphocytes # (Auto) 1.8 K/uL (1.0-4.8) Monocytes # (Auto) 0.9 K/uL (0.1-1.0) Eosinophils # (Auto) 0.22 K/uL (0.00-0.70) Basophils # (Auto) 0.07 K/uL (0.00-0.20) Absolute Immature Granulocyte (auto 0.07 K/uL (0-1) Nucleated Red Blood Cells 0.0 % (0.0-0.19) Sodium Level 139 mmol/L (136-145) Potassium Level 3.6 mmol/L (3.5-5.1) Chloride Level 104 mmol/L (101-111) Carbon Dioxide Level 27 mmol/L (21-32) Blood Urea Nitrogen 8 mg/dL (7-18) Creatinine 0.7 mg/dL (0.5-1.0) Glomerular Filtration Rate Calc 119 mL/min (>90) Random Glucose 97 mg/dL (70-105) Total Calcium 8.8 mg/dL (8.5-10.1) ED Course ED Course Orders Procedure Category Date Status Time Covid19 (Sars Antigen LAB 09/10/25 Complete Rapid) 08:46 Influenza Type A & B, LAB 09/10/25 Complete Rapid 08:46 Rapid (Group A Strep) LAB 09/10/25 Complete 08:46 Cbc With Differential LAB 09/10/25 Complete 09:35 Basic Metabolic Panel LAB 09/10/25 Complete 09:35 Urinalysis Profile LAB 09/10/25 Uncollected 09:35 0.9%Nacl 1000ml (Ns PHA 09/10/25 Complete 1000ml) 10:00 Current Medications Medications (Trade) Dose Ordered Sig/Nicolasa Route PRN Reason Start Time Stop Time Status Last Admin Dose Admin Sodium Chloride 1,000 ml @ 0 mls/hr ONCE ONCE IV 09/10/25 10:00 09/10/25 10:01 DC 09/10/25 11:09 Vital Signs Date Time Temp Pulse Resp B/P (MAP) Pulse Ox O2 Delivery O2 Flow Rate FiO2 09/10/25 11:21 99.0 97 18 132/78 97 Room Air* 0 21 09/10/25 09:57 97.9 70 20 94/63 0 Room Air* 0 21 09/10/25 08:44 98.4 83 20 103/71 97 Room Air Medical Decision Making MDM 30-year-old female who presented with a weakness, fatigue, cough, chills. Respiratory infection COVID, flu, strep negative Patient has mild leukocytosis I will order 1 dose ceftriaxone Plan to send the patient on oral antibiotics home. Must follow up with the PCP as outpatient. DX & DISP Disposition: Discharge Departure Impression: Primary Impression: Respiratory infection Condition: Stable Scripts Ibuprofen (Ibuprofen) 400 Mg Tablet 1 TAB PO TID for pain or fever for 20 Days, #60 TAB 0 Refills Prov: FLACO ORELLANA MD 09/10/25 Guaifenesin/Dextromethorphan (Robitussin [place]-Uuxdw-Rxlk Dm) 200 Mg-10 Mg Capsule 1 CAP PO BID for 10 Days, #20 CAP 0 Refills Prov: FLACO ORELLANA MD 09/10/25 Amoxicillin/Potassium Clav (Amox Tr-K Clv 875-125 mg Tab) 875 Mg-125 Mg Tablet 1 TAB PO BID for 10 Days, #20 TAB 0 Refills Prov: FLACO ORELLANA MD 09/10/25 Additional Instructions: RETURN TO ER FOR ANY ACUTE OR WORSENING SYMPTOMS. FOLLOW-UP IN 1-2 DAYS WITH PRIMARY PROVIDER FOR RECHECK OF TODAY'S SYMPTOMS. Referrals: SELF,REFERRAL (PCP) FLACO ORELLANA MD Sep 10, 2025 09:51
[2025-09-10 10:05] LABS: IMMATURE GRANULOCYTE ABSOLUTE 0.07 K/uL (0-1); NUCLEATED RED BLOOD CELLS 0.0 % (0.0-0.19); PLATELET COUNT (AUTO) 287 K/uL (130-400); RED BLOOD CELL COUNT(AUTO) 4.12 MIL/uL (4.00-5.50); RED CELL DISTRIBUTION WIDTH 12.9 % (11.0-15.5); WHITE BLOOD COUNT (AUTO) 13.8 K/uL (4.8-10.8)
[2025-09-10 10:16] LABS: CREATININE 0.7 mg/dL (0.5-1.0); GLOMERULAR FILTR. RATE CALC 119.0 mL/min (>90); GLUCOSE,RANDOM 97.0 mg/dL (70-105); SODIUM SERUM 139.0 mmol/L (136-145); UREA NITROGEN, BLOOD 8.0 mg/dL (7-18)
[2025-09-10] MEDS ORDERED: IBUP-2076 PO (11:07)
[2025-09-10] MEDS ORDERED: AMOX1TAB16 PO (11:07)
[2025-09-10] MEDS ORDERED: GUAI-1170 PO (11:07)
[2025-09-10] MEDS: 0.9%NACL 1000ML 1,000 ML IV ONE (11:09)
[2025-09-10 11:21] VITALS: BP 132/78; PULSE 97; RESP 18; TEMP 98.9; O2SAT 97
== END 2025-09-10 11:23 | disposition home or self-care (01) ==
LOC: EDH 08:43
DX: J98.8 Other specified respiratory disorders (principal); Z79.1 Long term (current) use of non-steroidal anti-inflammatories (NSAID); Z20.822 Contact with and (suspected) exposure to COVID-19
CPT/HCPCS: 99283; 87426; 80048; 85025; 87880; 87804 ×2; 36415; J7030